=== PATIENT | female | born 1950 | race Caucasian/White ===

== ENCOUNTER 2017-06-04 17:43 | Observation (INO) | payer OTHER ==
[~2017-06-04] VITALS: Ht 154.9 cm; Wt 89.7 kg
[~2017-06-04 17:43] MED LIST: CLON1TAB3; ESOM20CA; ESTR1.252; FLUO20CA35; OXYC-57
[2017-06-04] MEDS ORDERED: ONDANSETRON INJ 2 MG/ML 2 ML VIAL IV STA (17:54)
[2017-06-04] MEDS ORDERED: MoRPHine SULFATE 4 MG/ML 1 ML CARP\\VIAL IV STA (17:55)
[2017-06-04] MEDS ORDERED: OPTIRAY 320 IV PRN (18:00)
--- NOTE | 2017-06-04 18:08 | EMERGENCY ROOM VISIT NOTE ---
History Report prepared by Andrew: Amparo farmer Under the Supervision of: Dr. Shola Jimenez M.D. First contact with patient: 17:44 Chief Complaint: ABDOMINAL PAIN Stated Complaint: ABD PAIN/NAUSEA, DIZZY History of Present Illness The patient is a 66 year old female with a past medical history of Fibromyalgia who presents to the ED with a cc of constant chest pain beginning prior to arrival. The patient describes the pain as a "crushing pain." She states that it radiates to her back. She reports it started while she was sitting and has never had this before. She states that when she took Aspirin it helped some. Positive intermittent nausea, dizziness, abdominal pain and diaphoresis. Negative shortness of breath, cough, fevers, chills, recent antibiotic use, recent travel, urinary symptoms, diarrhea, melena, hematochezia , alcohol use, tobacco use, and a history of a DVT or PE. The patient notes a family history of CAD. The patient notes slipping on ice yesterday and falling on her face. Source of History: patient Onset: prior to arrival Position: chest Quality: other (crushing) Timing: constant Modifying Factors (Relieving): other (Aspirin) Associated Symptoms: + diaphoresis, + nausea, + abdominal pain, No fevers, No chills, No cough, No SOB, No melena, No hematochezia, No diarrhea, No urinary symptoms Note: The patient complains of dizziness. The patient denies recent antibiotic use, recent travel, alcohol use, tobacco use, and a history of a DVT or PE. Review of Systems See HPI for pertinent positives and negatives. A total of ten systems were reviewed and were otherwise negative. Past Medical & Surgical Medical Problems: (1) Chest pain (2) Fibromyalgia Family History Heart disease Social History Smoking Status: Never Smoker Smokeless Tobacco Use: No Alcohol Use: none Marital Status: single Current/Historical Medications Scheduled Aspirin (Aspirin EC Low Dose), 81 MG PO DAILY Citalopram (Citalopram Hydrobromide), 40 MG PO DAILY Clonazepam (Klonopin), 1 MG PO HS Estrogens, Conjugated (Premarin), 0.5 GM PV 2XWK Fluticasone Propionate (Nasal) (Flonase Allergy Relief), 2 SPRAYS MAGALY DAILY Gabapentin (Neurontin), 100 MG PO HS Omeprazole (Prilosec), 20 MG PO BID Solifenacin (Vesicare), 5 MG PO DAILY Triamterene/Hctz (Dyazide 37.5MG/25MG), 1 TAB PO DAILY Scheduled PRN Oxycodone/Acetaminophen 5MG/325MG (Percocet 5MG/325MG), 1 TABLET PO Q8 PRN for Severe Pain Allergies Coded Allergies: Cortisone (Verified Allergy, Intermediate, Rash, 06/04/17) Sulfa Antibiotics (Verified Allergy, Intermediate, RASH, 06/04/17) Physical Exam Vital Signs Date Time Temp Pulse Resp B/P (MAP) Pulse Ox O2 Delivery O2 Flow Rate FiO2 06/04/17 19:30 66 18 132/59 97 Room Air 06/04/17 17:45 36.5 75 18 137/71 96 Room Air 06/04/17 17:45 96 Room Air 06/04/17 17:45 96 Room Air Physical Exam GENERAL: Awake, alert, well-appearing, NAD, patient is in mild discomfort HENT: Normocephalic, scant abrasions over the face. EYES: Normal conjunctiva. Sclera non-icteric. NECK: Supple. No nuchal rigidity. FROM. RESPIRATORY: CTAB, no rhonchi, wheezing, crackles CARDIAC: RRR, no MRG ABDOMEN: Soft, nondistended, BS+, mild epigastric discomfort, nonsurgical abdomen MSK: No chest wall TTP, no LE edema NEURO: GCS 15, CN 2-12 intact, moves all 4s on command SKIN: No rash or jaundice noted. Medical Decision & Procedures ER Provider Diagnostic Interpretation: Radiology results as stated below per my review and radiologist interpretation: CHEST ONE VIEW PORTABLE CLINICAL HISTORY: Abdominal pain. COMPARISON STUDY: No previous studies for comparison. FINDINGS: Lung volumes are normal. There is no pneumothorax or pleural effusion. There is no consolidation to suggest pneumonia. There is mild cardiomegaly without evidence of pulmonary edema. There is no lucency under the hemidiaphragms to suggest pneumoperitoneum. IMPRESSION: 1. No acute cardiopulmonary findings. 2. Mild cardiomegaly. Electronically signed by: Jaskaran Felipe M.D. 06/04/2017 6:36 PM Dictated Date/Time: 06/04/2017 6:33 PM CHEST COMBO ANGIO DISSECTION CLINICAL HISTORY: Severe lower chest and epigastric pain radiating to back. COMPARISON STUDY: Chest radiograph performed earlier today. TECHNIQUE: Unenhanced and arterial phase imaging of the chest was performed. Injection of 93 cc Optiray 320 IV was uneventful. Sagittal and coronal reconstructed reviewed as well as maximal intensity projections on an independent 3-D workstation. FINDINGS: The caliber of the thoracic aorta is normal. There is no intramural hematoma or thoracic aortic dissection. There is mild to moderate cardiomegaly. There is trace pericardial fluid. No pulmonary emboli are identified. No pneumothorax or pleural effusion is present. There is no consolidation to suggest pneumonia. Bibasilar opacities reflect atelectasis. The central airways are patent. Note is made of a 5 mm right upper lobe nodule shown on image 74 of 251. Bony thorax is unremarkable. There is fatty infiltration of the liver. IMPRESSION: 1. No thoracic aortic dissection. 2. No acute intrathoracic findings. 3. Mild to moderate cardiomegaly. 4. 5 mm right upper lobe nodule. This can be followed according to the attached recommendations. 5. Fatty liver. Please refer to below summary of Fleischner criteria recommendations for follow-up of incidental CT nodules (Raleigh Williamson, Guidelines for management of small pulmonary nodules detected on CT scans: A statement from the Fleischner Society, Radiology 237: [phone].) SOLID NODULES Solitary nodule size: <6 mm * low risk patients: no follow-up needed * high risk patients: optional CT at 12 months Solitary nodule size: 6-8 mm * low risk patients: follow-up at 6-12 months, then consider further follow-up at 18-24 months * high risk patients: initial follow-up CT at 6-12 months and then at 18-24 months if no change Solitary nodule size: >8 mm * either low or high risk patients - consider follow-up CT at 3 months, and/or CT-PET, and/or biopsy Multiple nodules size: <6 mm * low risk patients: no routine follow-up * high risk patients: optional CT at 12 months Multiple nodules size: 6-8 mm * low risk patients: follow-up at 3-6 months, then consider further follow-up at 18-24 months * high risk patients: follow-up at 3-6 months, then at 18-24 months if no change Multiple nodules size: >8 mm * low risk patients: follow-up at 3-6 months, then consider further follow-up at 18-24 months * high risk patients: follow-up at 3-6 months, then at 18-24 months if no change Note: newly detected indeterminate nodule in persons 35 years of age or older. * low risk patients: minimal or absent history of smoking and/or other known risk factors * high risk patients: history of smoking or of other known risk factors (e.g. first degree relative with lung cancer, or exposure to asbestos, radon, uranium) * if a nodule up to 8 mm is partly solid or is ground glass further follow-up is required after 24 months to exclude possible slow growing adenocarcinoma (KENNEY) SUBSOLID NODULES Solitary pure ground-glass nodule * nodule size <6 mm - no CT follow-up required * nodule size >=6 mm - follow-up CT at 6-12 months, then every 2 years until 5 years Solitary part-solid nodule * nodule size <6 mm - no CT follow-up required * nodule size >=6 mm - follow-up CT at 3-6 months. If unchanged, and solid component remains <6 mm, then annual follow-up for 5 years Multiple subsolid nodules * nodule size <6 mm - follow-up CT at 3-6 months, consider further follow-up at 2 and 4 years if stable * nodule size >=6 mm - follow-up CT at 3-6 months, subsequent management based on the most suspicious nodule(s) Electronically signed by: Jaskaran Felipe M.D. 06/04/2017 7:12 PM Dictated Date/Time: 06/04/2017 6:59 PM Laboratory Results 06/04/17 17:45 Test 06/04/17 17:45 06/04/17 18:07 06/04/17 18:34 Activated Partial Thromboplast Time 31.4 SECONDS (21.0-31.0) Partial Thromboplastin Ratio 1.2 Est Creatinine Clear Calc Drug Dose 60.0 ml/min Estimated GFR () 70.7 Estimated GFR (Non- 61.0 BUN/Creatinine Ratio 13.0 (10-20) Calcium Level 9.2 mg/dl (8.5-10.1) Magnesium Level 2.2 mg/dl (1.8-2.4) Total Bilirubin 0.5 mg/dl (0.2-1) Direct Bilirubin < 0.1 mg/dl (0-0.2) Aspartate Amino Transf (AST/SGOT) 19 U/L (15-37) Alanine Aminotransferase (ALT/SGPT) 30 U/L (12-78) Alkaline Phosphatase 83 U/L (45-117) Total Protein 8.1 gm/dl (6.4-8.2) Albumin 3.8 gm/dl (3.4-5.0) Lipase 234 U/L (73-393) Bedside Troponin I < 0.030 ng/ml (0-0.045) Bedside Hemoglobin 11.9 g/dl (12.0-16.0) Bedside Hematocrit 35 % (37-47) Bedside Sodium 141 mEq/L (135-144) Bedside Potassium 3.6 mEq/L (3.3-5.0) Bedside Chloride 102 mEq/L (101-112) Bedside Total CO2 26 mEq/l (24-31) Anion Gap 17.0 mmol/L (16-25) Bedside Blood Urea Nitrogen 13 mg/dl (7-18) Bedside Creatinine 0.8 mg/dl (0.6-1.3) Bedside Glucose (other) 113 mg/dl (70-99) Bedside Lactic Acid Venous 1.64 mmol/L (0.90-1.70) Bedside Ionized Calcium (Jones) 1.11 mmol/l (1.12-1.32) Laboratory results reviewed by me Medications Administered Medications (Trade) Dose Ordered Sig/Rani Route Start Time Stop Time Status Last Admin Dose Admin Ondansetron HCl (Zofran Inj) 4 mg NOW STAT IV 06/04/17 17:54 06/04/17 17:56 DC 06/04/17 18:23 4 MG Morphine Sulfate (MoRPHine SULFATE INJ) 4 mg NOW STAT IV 06/04/17 17:55 06/04/17 17:56 DC 06/04/17 18:24 4 MG ECG Indication: chest pain Rate (beats per minute): 63 Rhythm: normal sinus Findings: 1st degree AV block, LBBB, T-wave inversion (Lateral, hilateral, and lead 2), other (wide QRS) Comparison ECG Date: Posterior Change: Patient's electrocardiogram interpreted by me. Posterior: Diffuse TWI in the posterior leads, rate of 66. ED Course 1747: The patient was evaluated in room B11B. A complete history and physical exam was performed. 1930: I reevaluated the patient and she is feeling better. 1952: Discussed the patient's case with Dr. Gigi Gibson. The patient will be evaluated for further treatment and disposition. Medical Decision The patient is a 66 year old female with a past medical history of Fibromyalgia who presents to the ED with a cc of constant chest pain beginning prior to arrival. Differential diagnosis: Etiologies such as cardiac ischemia, aortic dissection, pulmonary embolism, pneumonia, pneumothorax, musculoskeletal, infections, pericarditis, myocarditis , esophageal rupture, gastrointestinal, as well as others were entertained. Patient was seen and evaluated the bedside. Patient had complained of crushing substernal chest pain beginning around 4 PM. This was not exertional. Patient described it as radiating to her back. Patient did complains mild nausea. Patient does have a family history of MIs one in her 1 parent one one of her siblings before the age 65. Patient is obese. Patient was given full dose aspirin as well as nitroglycerin she states mildly improved her pain. Patient' s EKG did show a left bundle branch block with T-wave inversions in the lateral leads. She did show me one from 2001 and are changes from 2001. Posterior EKG was also obtained which did not show any elevations. Only T-wave inversions. Patient's blood work was fairly unremarkable with a negative troponin. Upon reassessment the patient's chest pain resolved. The patient's CTA dissection was negative acute. Chest x-ray clear. Given the patient's concerning story as well as resolution with aspirin and nitroglycerin and family history I did discuss the patient's case with the hospitalists for further evaluation for a chest pain rule out and observation. Patient was to be seen and evaluated by the medicine service. Medication Reconcilliation Current Medication List: was personally reviewed by me Blood Pressure Screening Patient's blood pressure: Normal blood pressure Will be further monitored by the hospitalist. Consults Time Called: 1946 Consulting Physician: Dr. Gigi Gibson Returned Call: 1952 Discussed the patient's case with Dr. Gigi Gibson. The patient will be evaluated for further treatment and disposition. Impression Primary Impression: Atypical chest pain Scribe Attestation The scribe's documentation has been prepared under my direction and personally reviewed by me in its entirety. I confirm that the note above accurately reflects all work, treatment, procedures, and medical decision making performed by me. Departure Information Dispostion Being Evaluated By Hospitalist Prescriptions Aspirin (Aspirin EC Low Dose) 81 Mg Ectab 81 MG PO DAILY for 30 Days, #30 EA 2 Refills Prov: Bertrand Goodwin MD 06/05/17 Referrals No Doctor, Assigned (PCP) Patient Instructions My [facility]
[2017-06-04 18:28] LABS: BASO % 0.6 %; BASO ABS # 0.05 K/uL (0-0.2); EOS % 2.4 %; EOS ABS # 0.19 K/uL (0-0.5); HEMATOCRIT 36.8 % (37-47); HEMOGLOBIN 12.5 g/dL (12.0-16.0); IG# 0.02 K/uL (0.00-0.02); LYMPH % 29.8 %; LYMPH ABS # 2.38 K/uL (1.2-3.4); MEAN CELL VOLUME 96.6 fL (80-100); MEAN CORPUSCULAR HEMOGLOBIN 32.8 pg (25-34); MEAN PLATELET VOLUME 8.8 fL (7.4-10.4); MONO % 7.8 %; MONO ABS # 0.62 K/uL (0.11-0.59); NEUT % 59.1 %; NEUT ABS # 4.74 K/uL (1.4-6.5); PLATELET COUNT 365 K/uL (130-400); RED CELL DISTRIBUTION WIDTH CV 13.4 % (11.5-14.5); RED CELL DISTRIBUTION WIDTH SD 46.7 fL (36.4-46.3)
[2017-06-04] MEDS ORDERED: PRLSR20 PO (18:29)
[2017-06-04] MEDS ORDERED: PRMVC PV (18:29)
[2017-06-04] MEDS ORDERED: GABA-112 PO (18:29)
[2017-06-04] MEDS ORDERED: OXYC-57 PO (18:29)
[2017-06-04] MEDS ORDERED: CITA40TA4 PO (18:29)
[2017-06-04] MEDS ORDERED: FLUT0.15 NAE (18:29)
[2017-06-04] MEDS ORDERED: VSC/5 PO (18:29)
[2017-06-04] MEDS ORDERED: CLON1TAB3 PO (18:29)
[2017-06-04] MEDS ORDERED: TRIA37.5 PO (18:29)
--- NOTE | 2017-06-04 18:37 | DIAGNOSTIC IMAGING REPORT ---
CHEST ONE VIEW PORTABLE CLINICAL HISTORY: Abdominal pain. COMPARISON STUDY: No previous studies for comparison. FINDINGS: Lung volumes are normal. There is no pneumothorax or pleural effusion. There is no consolidation to suggest pneumonia. There is mild cardiomegaly without evidence of pulmonary edema. There is no lucency under the hemidiaphragms to suggest pneumoperitoneum. IMPRESSION: 1. No acute cardiopulmonary findings. 2. Mild cardiomegaly. Electronically signed by: Jaskaran Felipe M.D. 06/04/2017 6:36 PM Dictated Date/Time: 06/04/2017 6:33 PM
[2017-06-04 18:48] LABS: ISTAT CREATININE 0.8 mg/dl (0.6-1.3); ISTAT IONIZED CALCIUM 1.11 mmol/l (1.12-1.32); ISTAT POTASSIUM 3.6 mEq/L (3.3-5.0)
[2017-06-04 18:49] LABS: ALBUMIN 3.8 gm/dl (3.4-5.0); ALT/SGPT 30 U/L (12-78); BLOOD UREA NITROGEN 13 mg/dl (7-18); CALCIUM 9.2 mg/dl (8.5-10.1); CARBON DIOXIDE 26 mmol/L (21-32); CREATININE 0.98 mg/dl (0.60-1.20); GLUCOSE 113 mg/dl (70-99); LIPASE 234 U/L (73-393); POTASSIUM 3.5 mmol/L (3.5-5.1); SODIUM 138 mmol/L (136-145)
[2017-06-04 18:52] LABS: ALKALINE PHOSPHATASE 83 U/L (45-117); AST/SGOT 19 U/L (15-37); TOTAL PROTEIN 8.1 gm/dl (6.4-8.2)
--- NOTE | 2017-06-04 19:13 | DIAGNOSTIC IMAGING REPORT ---
CHEST COMBO ANGIO DISSECTION CLINICAL HISTORY: Severe lower chest and epigastric pain radiating to back. COMPARISON STUDY: Chest radiograph performed earlier today. TECHNIQUE: Unenhanced and arterial phase imaging of the chest was performed. Injection of 93 cc Optiray 320 IV was uneventful. Sagittal and coronal reconstructed reviewed as well as maximal intensity projections on an independent 3-D workstation. FINDINGS: The caliber of the thoracic aorta is normal. There is no intramural hematoma or thoracic aortic dissection. There is mild to moderate cardiomegaly. There is trace pericardial fluid. No pulmonary emboli are identified. No pneumothorax or pleural effusion is present. There is no consolidation to suggest pneumonia. Bibasilar opacities reflect atelectasis. The central airways are patent. Note is made of a 5 mm right upper lobe nodule shown on image 74 of 251. Bony thorax is unremarkable. There is fatty infiltration of the liver. IMPRESSION: 1. No thoracic aortic dissection. 2. No acute intrathoracic findings. 3. Mild to moderate cardiomegaly. 4. 5 mm right upper lobe nodule. This can be followed according to the attached recommendations. 5. Fatty liver. Please refer to below summary of Fleischner criteria recommendations for follow-up of incidental CT nodules ([place] Williamson, Guidelines for management of small pulmonary nodules detected on CT scans: A statement from the Fleischner Society, Radiology 237: [phone].) SOLID NODULES Solitary nodule size: <6 mm * low risk patients: no follow-up needed * high risk patients: optional CT at 12 months Solitary nodule size: 6-8 mm * low risk patients: follow-up at 6-12 months, then consider further follow-up at 18-24 months * high risk patients: initial follow-up CT at 6-12 months and then at 18-24 months if no change Solitary nodule size: >8 mm * either low or high risk patients - consider follow-up CT at 3 months, and/or CT-PET, and/or biopsy Multiple nodules size: <6 mm * low risk patients: no routine follow-up * high risk patients: optional CT at 12 months Multiple nodules size: 6-8 mm * low risk patients: follow-up at 3-6 months, then consider further follow-up at 18-24 months * high risk patients: follow-up at 3-6 months, then at 18-24 months if no change Multiple nodules size: >8 mm * low risk patients: follow-up at 3-6 months, then consider further follow-up at 18-24 months * high risk patients: follow-up at 3-6 months, then at 18-24 months if no change Note: newly detected indeterminate nodule in persons 35 years of age or older. * low risk patients: minimal or absent history of smoking and/or other known risk factors * high risk patients: history of smoking or of other known risk factors (e.g. first degree relative with lung cancer, or exposure to asbestos, radon, uranium) * if a nodule up to 8 mm is partly solid or is ground glass further follow-up is required after 24 months to exclude possible slow growing adenocarcinoma (KENNEY) SUBSOLID NODULES Solitary pure ground-glass nodule * nodule size <6 mm - no CT follow-up required * nodule size >=6 mm - follow-up CT at 6-12 months, then every 2 years until 5 years Solitary part-solid nodule * nodule size <6 mm - no CT follow-up required * nodule size >=6 mm - follow-up CT at 3-6 months. If unchanged, and solid component remains <6 mm, then annual follow-up for 5 years Multiple subsolid nodules * nodule size <6 mm - follow-up CT at 3-6 months, consider further follow-up at 2 and 4 years if stable * nodule size >=6 mm - follow-up CT at 3-6 months, subsequent management based on the most suspicious nodule(s) Electronically signed by: Jaskaran Felipe M.D. 06/04/2017 7:12 PM Dictated Date/Time: 06/04/2017 6:59 PM
[2017-06-04 20:39] LABS: PTT PATIENT 31.4 SECONDS (21.0-31.0)
[2017-06-04] MEDS ORDERED: IV FLUIDS COMPLETED PRN (21:00)
[2017-06-04] MEDS ORDERED: NITROGLYCERIN 0.4 MG SL PER TAB CHARGE SL PRN (21:15)
[2017-06-04] MEDS ORDERED: ACETAMINOPHEN 325 MG TAB PO PRN (21:15)
[2017-06-04] MEDS ORDERED: MoRPHine SULFATE 4 MG/ML 1 ML CARP\\VIAL IV PRN (21:15)
[2017-06-04] MEDS ORDERED: OXYCODONE/ACETAMINOPHEN 5-325 TAB PO PRN (21:15)
[2017-06-04] MEDS ORDERED: PROCHLORPERAZINE INJ 5 MG in SYRINGE 4 ML IV PRN (21:15)
[2017-06-04] MEDS ORDERED: LORAZEPAM 2 MG/ML 1 ML VIAL IV PRN (21:15)
--- NOTE | 2017-06-04 21:42 | DIAGNOSTIC IMAGING REPORT ---
ABDOMINAL ULTRASOUND, RIGHT UPPER QUADRANT HISTORY: Abdominal pain. COMPARISON: None. FINDINGS: The liver is echogenic consistent with fatty infiltration. A hypoechoic focus within the gallbladder fossa suggests fatty sparing. There is no biliary ductal dilatation. Common bile duct measures 4 mm in caliber. The gallbladder is normal. No gallstones are identified. The pancreatic body is normal. The pancreatic head and tail are obscured by overlying bowel gas. There is no right hydronephrosis. IMPRESSION: 1. No gallstones or biliary ductal dilatation. 2. Fatty infiltration of the liver. Electronically signed by: Jaskaran Felipe M.D. 06/04/2017 9:41 PM Dictated Date/Time: 06/04/2017 9:38 PM
[2017-06-04 21:59] VITALS: BP 152/75; PULSE 63; TEMP 36.4; O2SAT 95; Ht 154.9 cm; Wt 89.7 kg
[2017-06-04] MEDS ORDERED: LORAZEPAM INJ 0.5 MG in SYRINGE 0.75 ML IV PRN (22:15)
[2017-06-04] MEDS ORDERED: NSS + 20MEQ KCL 1000ML 1,000 ML IV SCH (22:30)
[2017-06-04] MEDS ORDERED: CLONAZEPAM 1 MG TAB PO ONE (22:30)
[2017-06-04 23:08] VITALS: BP 123/71; PULSE 66; TEMP 37.1; O2SAT 91
--- NOTE | 2017-06-05 04:15 | HISTORY & PHYSICAL EXAMINATION ---
DATE OF ADMISSION: 06/04/2017 PRIMARY CARE DOCTOR: Dr. Lino. CHIEF COMPLAINT: Chest pain. HISTORY OF PRESENT ILLNESS: History obtained from the patient and records. Medical history is significant for hypertension, fibromyalgia, GERD, chronic left bundle-branch block, chronic fatigue syndrome as per records, anxiety, mood disorder. Yesterday, the patient noted lower chest pain described as crushing, going to her back, different from reflux, some shortness of breath, pleuritic. Some relief with aspirin. Some nausea, dizziness and diaphoresis. No shortness of breath. No bladder symptoms. Patient thinks she may have had similar chest discomfort more than 20 years ago which prompted a stress test at [facility] which turned out to be normal. The day before, she had a fall after slipping on the ice, falling on her face, no loss of consciousness. She sustained some facial bruises. MEDICAL HISTORY: As above. 2D echo from May 2012 showed EF 55%, LVH, no pulmonary hypertension, no significant valvular heart disease. SURGERIES: She has had carpal tunnel, VEENA BSO. HOME MEDICATIONS: Include citalopram, Klonopin, Premarin, Flonase, Neurontin, Prilosec, Percocet, VESIcare, Dyazide. ALLERGIES: ALLERGIC TO CORTISONE AND SULFA. FAMILY HISTORY: Heart disease, skin cancer. PERSONAL AND SOCIAL HISTORY: Nonsmoker, no chronic intake of alcohol beverages. 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 REVIEW OF SYSTEMS: As per HPI, all 10 systems reviewed. All other ROS negative. PHYSICAL EXAMINATION: VITAL SIGNS: Blood pressure was noted to be 130/80, pulse rate 80, RR 18, temperature 36.5, sats 98 on room air. GENERAL: Noted to be obese, comfortable, no respiratory distress. Pleasant SKIN: Normal color. Warm. HEENT: [place] palpebral conjunctivae. No ptosis. Dry mucosa. Abrasions on the forehead, nasal dorsum NECK: Short neck, nontender, supple. CHEST: Clear to auscultation. No anterior chest wall tenderness. HEART: Regular rate and rhythm, no murmur. ABDOMEN: Some distension, nontender. EXTREMITIES: No edema, no tenderness. No gross deformity. NEUROLOGIC: Coherent. No gross focality. LABORATORIES: Hemoglobin 12.5, white cell count 8, platelets noted to be 365. Sodium noted to be 138, potassium 3.5, chloride 104, CO2 26, BUN 30, creatinine 0.9, glucose 113. LFTs, lipase normal. ESR was noted to be 55. CTdissection study, no thoracic aortic dissection, cardiomegaly, trace pericardial fluid Gallbladder ultrasound negative for gallstones ; fatty infiltration of the liver. EKG as per my interpretation, rate 65, normal sinus rhythm, chronic left bundle-branch block. ASSESSMENT: 1. Atypical chest pain Differentials include pericarditis and acute coronary syndrome. 2. Hypertension, stable. 3. Fibromyalgia, stable. 4. Mood disorder, stable. 5. Chronic left bundle-branch block. PLAN: Observation PCU Follow cardiac markers. 2D echo, Cardio consult RE chest pain. Further evaluation and management of chest pain as per Cardiology. DVT prophylaxis, Lovenox subQ. Full code. MTDD
[2017-06-05 04:26] LABS: BASO % 0.5 %; BASO ABS # 0.04 K/uL (0-0.2); EOS % 2.3 %; EOS ABS # 0.18 K/uL (0-0.5); HEMATOCRIT 32.8 % (37-47); HEMOGLOBIN 11.1 g/dL (12.0-16.0); IG# 0.01 K/uL (0.00-0.02); LYMPH % 35.1 %; LYMPH ABS # 2.69 K/uL (1.2-3.4); MEAN CELL VOLUME 97.9 fL (80-100); MEAN CORPUSCULAR HEMOGLOBIN 33.1 pg (25-34); MEAN CORPUSCULAR HGB CONC 33.8 g/dl (32-36); MEAN PLATELET VOLUME 8.5 fL (7.4-10.4); MONO ABS # 0.61 K/uL (0.11-0.59); NEUT ABS # 4.13 K/uL (1.4-6.5); PLATELET COUNT 298 K/uL (130-400); RED CELL DISTRIBUTION WIDTH CV 13.7 % (11.5-14.5); RED CELL DISTRIBUTION WIDTH SD 48.7 fL (36.4-46.3); WHITE BLOOD COUNT 7.66 K/uL (4.8-10.8)
[2017-06-05 04:41] VITALS: BP 120/74; PULSE 68; TEMP 36.8; O2SAT 93
[2017-06-05 04:58] LABS: CHOLESTEROL 158 mg/dl (0-200); LDL CHOLESTEROL CALCULATED 76 mg/dl
[2017-06-05 07:47] VITALS: BP 144/72; PULSE 67; TEMP 36.7; O2SAT 96
[2017-06-05] MEDS ORDERED: PANTOprazole SOD 40 MG TAB PO SCH (09:00)
[2017-06-05] MEDS ORDERED: FLUTICASONE PROPIONATE NA SPR 16 GM BTL NAE SCH (09:00)
[2017-06-05] MEDS ORDERED: ENOXAPARIN 40 MG/0.4 ML SYR SC SCH (09:00)
[2017-06-05] MEDS ORDERED: CITALOPRAM 40 MG TAB PO SCH (09:00)
[2017-06-05 11:18] VITALS: BP 130/70; PULSE 81; TEMP 36.5; O2SAT 93
--- NOTE | 2017-06-05 12:23 | Progress Note ---
Internal Med Progress Note Date of Service: Jun 05, 2017. Provider Documentation: SUBJECTIVE: Seen and examined at bedside States chest pain resolved Denies any SOB, dizziness, nausea No other complaints Family at bedside OBJECTIVE: Vital Signs-as noted below Physical Exam: General Appearance:Moderately built and nourished, no apparent distress Head: normocephalic, Atraumatic Eyes: normal inspection, EOMI, PERRL Neck: supple, Trachea midline Respiratory/Chest: Normal breath sounds, CTA Cardiovascular: S1, S2, No murmur Abdomen/GI:Soft, Non tender, Bowel sounds present Extremities/Musculoskelatal:normal inspection, no edema Neurologic/Psych:AAOX3, grossly no focal neurological deficits Skin: normal color, warm Lab data as noted below. ASSESSMENT & PLAN: Chest Pain: R/O ACS: Unlikely Cardiac Origin Last Stress ECHO was in 2001 Troponin:Negative EKG:LBBB CXR: Unremarkable CT dissection:No thoracic aortic dissection, Mild to moderate cardiomegaly. ECHO:pending fasting lipid panel:normal Appreciate Cardiology Input Planned for outpatient Lexiscan Cardiolite study as outpatient Hypertension: stable H/O Fibromyalgia H/O Mood disorder stable Continue home medications GERD: Continue PPI DVT Px; Lovenox SQ Code Status: Full code Disposition: Plan to discharge home today Follow up with your Primary Care Physician on 06/12/17 at 11:04AM Follow up with your [employer] Professor and get outpatient Lexiscan Cardiolite study as advised Seek immediate medical attention if your symptoms reoccur or worsen Vital Signs: Date Time Temp Pulse Resp B/P (MAP) Pulse Ox O2 Delivery O2 Flow Rate FiO2 06/05/17 12:51 93 Room Air 06/05/17 11:18 36.5 81 20 130/70 (90) 93 06/05/17 07:47 36.7 67 20 144/72 (96) 96 06/05/17 07:45 Room Air 06/05/17 04:41 36.8 68 18 120/74 (89) 93 Room Air 06/05/17 04:00 Room Air 06/05/17 00:00 Room Air 06/04/17 23:08 37.1 66 20 123/71 (88) 91 Room Air 06/04/17 21:59 36.4 63 16 152/75 95 Room Air 06/04/17 21:05 61 18 120/54 95 06/04/17 19:30 66 18 132/59 97 Room Air 06/04/17 17:45 36.5 75 18 137/71 96 Room Air 06/04/17 17:45 96 Room Air 06/04/17 17:45 96 Room Air Lab Results: Results Past 24 Hours Test 06/04/17 17:45 06/04/17 18:07 06/04/17 18:34 06/04/17 22:25 Range/Units White Blood Count 8.00 4.8-10.8 K/uL Red Blood Count 3.81 4.2-5.4 M/uL Hemoglobin 12.5 12.0-16.0 g/dL Hematocrit 36.8 37-47 % Mean Corpuscular Volume 96.6 80-100 fL Mean Corpuscular Hemoglobin 32.8 25-34 pg Mean Corpuscular Hemoglobin Concent 34.0 32-36 g/dl Platelet Count 365 130-400 K/uL Mean Platelet Volume 8.8 7.4-10.4 fL Neutrophils (%) (Auto) 59.1 % Lymphocytes (%) (Auto) 29.8 % Monocytes (%) (Auto) 7.8 % Eosinophils (%) (Auto) 2.4 % Basophils (%) (Auto) 0.6 % Neutrophils # (Auto) 4.74 1.4-6.5 K/uL Lymphocytes # (Auto) 2.38 1.2-3.4 K/uL Monocytes # (Auto) 0.62 0.11-0.59 K/uL Eosinophils # (Auto) 0.19 0-0.5 K/uL Basophils # (Auto) 0.05 0-0.2 K/uL RDW Standard Deviation 46.7 36.4-46.3 fL RDW Coefficient of Variation 13.4 11.5-14.5 % Immature Granulocyte % (Auto) 0.3 % Immature Granulocyte # (Auto) 0.02 0.00-0.02 K/uL Activated Partial Thromboplast Time 31.4 21.0-31.0 SECONDS Partial Thromboplastin Ratio 1.2 Sodium Level 138 136-145 mmol/L Potassium Level 3.5 3.5-5.1 mmol/L Chloride Level 104 98-107 mmol/L Carbon Dioxide Level 26 21-32 mmol/L Anion Gap 9.0 17.0 16-25 mmol/L Blood Urea Nitrogen 13 7-18 mg/dl Creatinine 0.98 0.60-1.20 mg/dl Est Creatinine Clear Calc Drug Dose 60.0 ml/min Estimated GFR () 70.7 Estimated GFR (Non- 61.0 BUN/Creatinine Ratio 13.0 10-20 Random Glucose 113 70-99 mg/dl Calcium Level 9.2 8.5-10.1 mg/dl Magnesium Level 2.2 1.8-2.4 mg/dl Total Bilirubin 0.5 0.2-1 mg/dl Direct Bilirubin < 0.1 0-0.2 mg/dl Aspartate Amino Transf (AST/SGOT) 19 15-37 U/L Alanine Aminotransferase (ALT/SGPT) 30 12-78 U/L Alkaline Phosphatase 83 45-117 U/L Total Protein 8.1 6.4-8.2 gm/dl Albumin 3.8 3.4-5.0 gm/dl Lipase 234 73-393 U/L Bedside Troponin I < 0.030 0-0.045 ng/ml Bedside Hemoglobin 11.9 12.0-16.0 g/dl Bedside Hematocrit 35 37-47 % Bedside Sodium 141 135-144 mEq/L Bedside Potassium 3.6 3.3-5.0 mEq/L Bedside Chloride 102 101-112 mEq/L Bedside Total CO2 26 24-31 mEq/l Bedside Blood Urea Nitrogen 13 7-18 mg/dl Bedside Creatinine 0.8 0.6-1.3 mg/dl Bedside Glucose (other) 113 70-99 mg/dl Bedside Lactic Acid Venous 1.64 0.90-1.70 mmol/L Bedside Ionized Calcium (Jones) 1.11 1.12-1.32 mmol/l Erythrocyte Sedimentation Rate 55 0-21 mm/hr Troponin I < 0.015 0-0.045 ng/ml Test 06/04/17 23:00 06/05/17 03:51 Range/Units Urine Color YELLOW Urine Appearance CLEAR CLEAR Urine pH 6.5 4.5-7.5 Urine Specific [place] <= 1.005 1.000-1.030 Urine Protein NEG NEG Urine Glucose (UA) NEG NEG Urine Ketones NEG NEG Urine Occult Blood TRACE NEG Urine Nitrite NEG NEG Urine Bilirubin NEG NEG Urine Urobilinogen NEG NEG Urine Leukocyte Esterase NEG NEG Urine RBC 0-4 0-4 /hpf Urine WBC 0 0-5 /hpf Urine Epithelial Cells 20-30 0-5 /lpf Urine Bacteria NEG NEG White Blood Count 7.66 4.8-10.8 K/uL Red Blood Count 3.35 4.2-5.4 M/uL Hemoglobin 11.1 12.0-16.0 g/dL Hematocrit 32.8 37-47 % Mean Corpuscular Volume 97.9 80-100 fL Mean Corpuscular Hemoglobin 33.1 25-34 pg Mean Corpuscular Hemoglobin Concent 33.8 32-36 g/dl Platelet Count 298 130-400 K/uL Mean Platelet Volume 8.5 7.4-10.4 fL Neutrophils (%) (Auto) 54.0 % Lymphocytes (%) (Auto) 35.1 % Monocytes (%) (Auto) 8.0 % Eosinophils (%) (Auto) 2.3 % Basophils (%) (Auto) 0.5 % Neutrophils # (Auto) 4.13 1.4-6.5 K/uL Lymphocytes # (Auto) 2.69 1.2-3.4 K/uL Monocytes # (Auto) 0.61 0.11-0.59 K/uL Eosinophils # (Auto) 0.18 0-0.5 K/uL Basophils # (Auto) 0.04 0-0.2 K/uL RDW Standard Deviation 48.7 36.4-46.3 fL RDW Coefficient of Variation 13.7 11.5-14.5 % Immature Granulocyte % (Auto) 0.1 % Immature Granulocyte # (Auto) 0.01 0.00-0.02 K/uL Prothrombin Time 10.3 9.0-12.0 SECONDS Prothromb Time International Ratio 1.0 0.9-1.1 Troponin I < 0.015 0-0.045 ng/ml Triglycerides Level 149 0-150 mg/dl Cholesterol Level 158 0-200 mg/dl HDL Cholesterol 52 mg/dl LDL Cholesterol, Calculated 76 mg/dl VLDL Cholesterol, Calculated 30 mg/dl Cholesterol/HDL Ratio 3.0
[2017-06-05 12:51] VITALS: O2SAT 93
--- NOTE | 2017-06-05 13:18 | Cardiology Consultation ---
Cardiology Consultation Date of Service Jun 05, 2017. Cardiology Consultation History: 66-year-old female with a history of chronic fatigue syndrome , fibromyalgia, mood disorder, chronic left bundle branch block and hypertension. She last evening developed what she describes as severe epigastric discomfort radiating to her back. She states that it lasted for approximately an hour and then she called paramedics. She was given one sublingual nitroglycerin that did not help her discomfort. She was then given morphine which completely relieved her pain. She denies shortness of breath or dyspnea. She's had no heart palpitations or tachycardia. Recently she's had no activity related chest pain or progressive shortness of breath. She has no prior history of heart disease except that she's had a chronic left bundle branch block. She is treated for mild essential hypertension. She has no history of diabetes. She is a nonsmoker. Allergies: Cortisone and sulfa antibiotics Current Inpatient Medications Medications (Trade) Dose Ordered Sig/Rani Route Start Time Stop Time Status Last Admin Dose Admin Ioversol (Optiray 320) 100 ml UD PRN IV 06/04/17 18:00 06/08/17 17:59 Miscellaneous (Iv Fluids Completed) 1 ea PRN PRN N/A 06/04/17 21:00 06/04/18 20:59 Enoxaparin Sodium (Lovenox Inj) 40 mg Q24H SC 06/05/17 09:00 07/05/17 08:59 Potassium Chloride/Sodium Chloride 1,000 ml @ 60 mls/hr [id number] IV 06/04/17 22:30 07/04/17 22:29 06/04/17 22:25 60 MLS/HR Acetaminophen (Tylenol Tab) 650 mg Q4H PRN PO 06/04/17 21:15 07/04/17 21:14 Nitroglycerin (Nitrostat Tab) 0.4 mg UD PRN SL 06/04/17 21:15 07/04/17 21:14 Lorazepam (Ativan Inj) 0.5 mg Q4H PRN IV 06/04/17 21:15 07/04/17 21:14 Morphine Sulfate (MoRPHine SULFATE INJ) 4 mg Q3H PRN IV 06/04/17 21:15 06/18/17 21:14 Prochlorperazine Edisylate 5 mg/ Syringe 5 ml @ 5 mls/min Q6H PRN IV 06/04/17 21:15 07/04/17 21:14 Citalopram Hydrobromide (celeXA TAB) 40 mg DAILY PO 06/05/17 09:00 07/05/17 08:59 06/05/17 07:36 40 MG Clonazepam (Klonopin Tab) 1 mg HS PO 06/05/17 21:00 07/05/17 20:59 Fluticasone Propionate (Flonase Nasal [place]) 2 sprays DAILY MAGALY 06/05/17 09:00 07/05/17 08:59 06/05/17 07:36 2 SPRAYS Gabapentin (Neurontin Cap) 100 mg HS PO 06/05/17 21:00 07/05/17 20:59 Oxycodone/ Acetaminophen (Percocet 5-325mg Tab) 1 tab Q6 PRN PO 06/04/17 21:15 06/18/17 21:14 Pantoprazole Sodium (Protonix Tab) 40 mg BID PO 06/05/17 09:00 07/05/17 08:59 06/05/17 07:36 40 MG Miscellaneous Information (Order Awaiting Action) 1 ea QS N/A 06/05/17 08:00 07/05/17 07:59 Lorazepam 0.5 mg/ Syringe 1 ml @ 1 mls/min Q4H PRN IV 06/04/17 22:15 07/04/17 22:14 Past medical history: As described in history of chief complaint the patient has a history of mild essential hypertension. No prior history of diabetes, strokes or kidney disease. No prior history of heart disease. She does have a history of chronic fatigue syndrome and fibromyalgia. Social history: Patient is a nonsmoker. She is and lives with her . Family medical history: Significant for sister that has a defibrillator and a history of heart disease Head: The patient denies headache and prior head trauma. Cardiovascular: The patient denies chest pain or chest discomfort, dyspnea on exertion, palpitations, PND, orthopnea, edema, spontaneous shortness of breath, syncope and near syncope. Pulmonary: The patient denies cough, wheeze, pleurisy, hemoptysis, sputum, and excessive snoring. Gastrointestinal: The patient denies nausea, vomiting, diarrhea, constipation, bloating, hematemesis, hematochezia, and abdominal pain. Skin: The patient denies diaphoresis and rash. Musculoskeletal: The patient denies joint pain, joint swelling, myalgia, back pain, neck pain and prior injuries. Neurological: The patient denies prior stroke and seizures Vital Signs Past 12 Hours Date Time Temp Pulse Resp B/P (MAP) Pulse Ox O2 Delivery O2 Flow Rate FiO2 06/05/17 12:51 93 Room Air 06/05/17 11:18 36.5 81 20 130/70 (90) 93 06/05/17 07:47 36.7 67 20 144/72 (96) 96 06/05/17 07:45 Room Air 06/05/17 04:41 36.8 68 18 120/74 (89) 93 Room Air 06/05/17 04:00 Room Air Last 24 Hours Test 06/04/17 17:45 06/04/17 18:07 06/04/17 18:34 06/04/17 22:25 White Blood Count 8.00 K/uL Red Blood Count 3.81 M/uL Hemoglobin 12.5 g/dL Hematocrit 36.8 % Mean Corpuscular Volume 96.6 fL Mean Corpuscular Hemoglobin 32.8 pg Mean Corpuscular Hemoglobin Concent 34.0 g/dl Platelet Count 365 K/uL Mean Platelet Volume 8.8 fL Neutrophils (%) (Auto) 59.1 % Lymphocytes (%) (Auto) 29.8 % Monocytes (%) (Auto) 7.8 % Eosinophils (%) (Auto) 2.4 % Basophils (%) (Auto) 0.6 % Neutrophils # (Auto) 4.74 K/uL Lymphocytes # (Auto) 2.38 K/uL Monocytes # (Auto) 0.62 K/uL Eosinophils # (Auto) 0.19 K/uL Basophils # (Auto) 0.05 K/uL RDW Standard Deviation 46.7 fL RDW Coefficient of Variation 13.4 % Immature Granulocyte % (Auto) 0.3 % Immature Granulocyte # (Auto) 0.02 K/uL Activated Partial Thromboplast Time 31.4 SECONDS Partial Thromboplastin Ratio 1.2 Sodium Level 138 mmol/L Potassium Level 3.5 mmol/L Chloride Level 104 mmol/L Carbon Dioxide Level 26 mmol/L Anion Gap 9.0 mmol/L 17.0 mmol/L Blood Urea Nitrogen 13 mg/dl Creatinine 0.98 mg/dl Est Creatinine Clear Calc Drug Dose 60.0 ml/min Estimated GFR () 70.7 Estimated GFR (Non- 61.0 BUN/Creatinine Ratio 13.0 Random Glucose 113 mg/dl Calcium Level 9.2 mg/dl Magnesium Level 2.2 mg/dl Total Bilirubin 0.5 mg/dl Direct Bilirubin < 0.1 mg/dl Aspartate Amino Transf (AST/SGOT) 19 U/L Alanine Aminotransferase (ALT/SGPT) 30 U/L Alkaline Phosphatase 83 U/L Total Protein 8.1 gm/dl Albumin 3.8 gm/dl Lipase 234 U/L Bedside Troponin I < 0.030 ng/ml Bedside Hemoglobin 11.9 g/dl Bedside Hematocrit 35 % Bedside Sodium 141 mEq/L Bedside Potassium 3.6 mEq/L Bedside Chloride 102 mEq/L Bedside Total CO2 26 mEq/l Bedside Blood Urea Nitrogen 13 mg/dl Bedside Creatinine 0.8 mg/dl Bedside Glucose (other) 113 mg/dl Bedside Lactic Acid Venous 1.64 mmol/L Bedside Ionized Calcium (Jones) 1.11 mmol/l Erythrocyte Sedimentation Rate 55 mm/hr Troponin I < 0.015 ng/ml Test 06/04/17 23:00 06/05/17 03:51 Urine Color YELLOW Urine Appearance CLEAR Urine pH 6.5 Urine Specific [place] <= 1.005 Urine Protein NEG Urine Glucose (UA) NEG Urine Ketones NEG Urine Occult Blood TRACE Urine Nitrite NEG Urine Bilirubin NEG Urine Urobilinogen NEG Urine Leukocyte Esterase NEG Urine RBC 0-4 /hpf Urine WBC 0 /hpf Urine Epithelial Cells 20-30 /lpf Urine Bacteria NEG White Blood Count 7.66 K/uL Red Blood Count 3.35 M/uL Hemoglobin 11.1 g/dL Hematocrit 32.8 % Mean Corpuscular Volume 97.9 fL Mean Corpuscular Hemoglobin 33.1 pg Mean Corpuscular Hemoglobin Concent 33.8 g/dl Platelet Count 298 K/uL Mean Platelet Volume 8.5 fL Neutrophils (%) (Auto) 54.0 % Lymphocytes (%) (Auto) 35.1 % Monocytes (%) (Auto) 8.0 % Eosinophils (%) (Auto) 2.3 % Basophils (%) (Auto) 0.5 % Neutrophils # (Auto) 4.13 K/uL Lymphocytes # (Auto) 2.69 K/uL Monocytes # (Auto) 0.61 K/uL Eosinophils # (Auto) 0.18 K/uL Basophils # (Auto) 0.04 K/uL RDW Standard Deviation 48.7 fL RDW Coefficient of Variation 13.7 % Immature Granulocyte % (Auto) 0.1 % Immature Granulocyte # (Auto) 0.01 K/uL Prothrombin Time 10.3 SECONDS Prothromb Time International Ratio 1.0 Troponin I < 0.015 ng/ml Triglycerides Level 149 mg/dl Cholesterol Level 158 mg/dl HDL Cholesterol 52 mg/dl LDL Cholesterol, Calculated 76 mg/dl VLDL Cholesterol, Calculated 30 mg/dl Cholesterol/HDL Ratio 3.0 General Appearance: Alert and Oriented x3. NAD. Head: Normocephalic Atraumatic. Eyes: PERRLA, EOMI, conjunctiva and sclera clear Neck: Supple. No carotid bruits noted. No JVD. No HJD. Respiratory: Breath sounds clear to auscultation bilaterally. No w/r/r. Cardiovascular: Reg rate and rhythm. S1 and S2 noted. No murmurs, rubs, gallops. PMI non displace. Abdomen: Normal bowel sounds, soft nontender. no abdominal bruits. Extremities: No edema, no clubbing or cyanosis. distal pulses 2/4 bilaterally. Neuro: No focal deficits. Psychiatric: Normal affect. EKG reveals a sinus rhythm with a left bundle branch block Impression: 1. Atypical chest pain 2. Essential hypertension 3. History of GERD 4. Fibromyalgia and chronic fatigue Recommendations: The patient has had 3 negative cardiac enzymes. I believe that her pain is atypical and unlikely to be cardiac in origin however, she does have an old left bundle branch block on her EKG which makes further interpretation difficult. I would recommend that she have an outpatient Lexiscan Cardiolite study. I think she can be discharged home and have the study done as an outpatient and I will arrange for this through our office.
[2017-06-05] MEDS ORDERED: ASPEC81 PO (13:41)
--- NOTE | 2017-06-05 13:43 | Discharge Summary ---
Discharge Summary Date of Service Jun 05, 2017. Discharge Summary Admission Date: Jun 04, 2017 at 20:20 Discharge Date: Jun 05, 2017 Discharge Disposition: Home Principal Diagnosis: Atypical Chest Pain Procedures: CT dissection: 1. No thoracic aortic dissection. 2. No acute intrathoracic findings. 3. Mild to moderate cardiomegaly. 4. 5 mm right upper lobe nodule. This can be followed according to the attached recommendations. 5. Fatty liver. Gall Bladder USD: 1. No gallstones or biliary ductal dilatation. 2. Fatty infiltration of the liver. ECHO: * The study was technically limited. * The left ventricle is normal in size. * Left ventricular systolic function is mildly reduced. * Ejection Fraction = 45-50%. * Septal motion is consistent with conduction abnormality. * The right ventricular systolic function is normal. * The left atrial size is normal. * Right atrial size is normal. * No significant valvular pathology. Consultations: Cardiology Pending Studies/Follow-Up: Follow up with your Primary Care Physician on 06/12/17 at 11:04AM Follow up with your [employer] Crosscutter and get outpatient Lexiscan Cardiolite study as advised Seek immediate medical attention if your symptoms reoccur or worsen Medication Reconciliation New Medications: Aspirin (Aspirin EC Low Dose) 81 Mg Ectab 81 MG PO DAILY for 30 Days, #30 EA 2 Refills Continued Medications: Citalopram (Citalopram Hydrobromide) 40 Mg Tab 40 MG PO DAILY, TAB Clonazepam (Klonopin) 1 Mg Tab 1 MG PO HS, TAB Estrogens, Conjugated (Premarin) 14 Appln/30 Gm Cr 0.5 GM PV 2XWK ADMINISTER EVERY THURSDAY AND THURSDAY Fluticasone Propionate (Nasal) (Flonase Allergy Relief) 50 Mcg/Act Spr 2 SPRAYS MAGALY DAILY Gabapentin (Neurontin) 100 Mg Cap 100 MG PO HS, CAP Omeprazole (Prilosec) 20 Mg Capcr 20 MG PO BID, CAP TAKE THIS MEDICATION 30 MINUTES BEFORE BREAKFAST AND EVENING MEAL Oxycodone/Acetaminophen 5MG/325MG (Percocet 5MG/325MG) Tab 1 TABLET PO Q8 PRN for Severe Pain, TAB Solifenacin (Vesicare) 5 Mg Tab 5 MG PO DAILY, TAB Triamterene/Hctz (Dyazide 37.5MG/25MG) Cap 1 TAB PO DAILY, CAP Hospital Course Chest Pain: R/O ACS: Unlikely Cardiac Origin Last Stress ECHO was in 2001 Troponin:Negative EKG:LBBB CXR: Unremarkable CT dissection:No thoracic aortic dissection, Mild to moderate cardiomegaly. ECHO:pending fasting lipid panel:normal Appreciate Cardiology Input Planned for outpatient Lexiscan Cardiolite study as outpatient Hypertension: stable H/O Fibromyalgia H/O Mood disorder stable Continue home medications GERD: Continue PPI 5 mm R upper lobe nodule: No H/O smoking Follow up with PCP as outpatient given H/O being tired [employer] by occupation DVT Px; Lovenox SQ Code Status: Full code Disposition: Plan to discharge home today Follow up with your Primary Care Physician on 06/12/17 at 11:04AM Follow up with your Rolled Glass Crosscutter and get outpatient Lexiscan Cardiolite study as advised Seek immediate medical attention if your symptoms reoccur or worsen Total time spent on discharge = This includes examination of the patient, discharge planning, medication reconciliation, and communication with other providers. Discharge Instructions Discharge Instructions Date of Service Jun 05, 2017. Admission Reason for Admission: Chest Pain Discharge Discharge Diagnosis / Problem: Atypical Chest Pain Discharge Goals Goal(s): Decrease discomfort, Improve function Activity Recommendations Activity Limitations: resume your previous activity Exercise/Sports Limitations: as tolerated . Instructions / Follow-Up Instructions / Follow-Up Follow up with your Primary Care Physician on 06/12/17 at 11:04AM Follow up with your [employer]led Glass Crosscutter and get outpatient Lexiscan Cardiolite study as advised Seek immediate medical attention if your symptoms reoccur or worsen Current Hospital Diet Patient's current hospital diet: AHA Diet (Heart Healthy) Discharge Diet Recommended Diet: AHA Diet (Heart Healthy) Pending Studies Studies pending at discharge: yes List of pending studies: ECHO Laboratory Results Lipid Panel Test 06/05/17 03:51 Range/Units Triglycerides Level 149 0-150 mg/dl Cholesterol Level 158 0-200 mg/dl HDL Cholesterol 52 mg/dl Cholesterol/HDL Ratio 3.0 LDL Cholesterol, Calculated 76 mg/dl Medical Emergencies . Who to Call and When: Medical Emergencies: If at any time you feel your situation is an emergency, please call 911 immediately. . Non-Emergent Contact Non-Emergency issues call your: Primary Care Provider, [employer] Cross[employer]ter Call Non-Emergent contact if: you have a fever, your pain is not controlled, your pain is worsening, your pain is unusual for you, your pain is concerning you, you have any medication questions Seek immediate medical attention if your symptoms reoccur or worsen . . "Provider Documentation" section prepared by Bertrand Goodwin. . VTE Core Measure Inpt VTE Proph given/why not?: Enoxaparin (Lovenox)SQ
[2017-06-05 13:49] VITALS: BP 130/70; PULSE 81; TEMP 36.5; O2SAT 93
--- NOTE | 2017-06-05 15:15 | ECHOCARDIOGRAM REPORT ---
*NOTICE TO RECEIVING DEMOCRAT AGENCY This information is strictly Confidential and protected under [place] law. [place] law prohibits you from making any further disclosure of this information unless further disclosure is expressly permitted by the written consent of the person to whom it pertains or is authorized by law. A general authorization for the release of medical or other information is not sufficient for this purpose. Hospital accepts no responsibility if the information is made available to any other person, INCLUDING THE PATIENT. Interpretation Summary * Name: CASEY WHITTAKER Study Date: 06/05/2017 06:38 AM BP: 120/74 mmHg * Patient Location: [facility]\S\[id number] HR: 68 * : 1950 (M/d/yyyy) Gender: Female Height: 60 in * Age: 66 yrs Ethnicity: [place] Weight: 197 lb * Ordering Physician: Mason Yu * Referring Physician: Self, Referred * Performed By: Larissa Perkins RDCS * * Reason For Study: Chest Pain * BSA: 1.9 m2 * The study was technically limited. * -- Conclusions -- * The study was technically limited. * The left ventricle is normal in size. * Left ventricular systolic function is mildly reduced. * Ejection Fraction = 45-50%. * Septal motion is consistent with conduction abnormality. * The right ventricular systolic function is normal. * The left atrial size is normal. * Right atrial size is normal. * No significant valvular pathology. Procedure Details * A complete two-dimensional transthoracic echocardiogram was performed (2D, M-mode, Doppler and color flow Doppler). Left Ventricle * The left ventricle is normal in size. * There is normal left ventricular wall thickness. * Ejection Fraction = 45-50%. * Left ventricular systolic function is mildly reduced. * Septal motion is consistent with conduction abnormality. Right Ventricle * The right ventricle is normal size. * The right ventricular systolic function is normal. Atria * The left atrial size is normal. * Right atrial size is normal. * The interatrial septum is intact with no evidence for an atrial septal defect. Mitral Valve * The mitral valve is grossly normal. * There is trace mitral regurgitation. Tricuspid Valve * The tricuspid valve is not well visualized. * Significant tricuspid regurgitation is absent. Aortic Valve * The aortic valve is normal in structure and function. Pulmonic Valve * The pulmonic valve is not well seen, but is grossly normal. * There is no significant pulmonary regurgitation. Pericardium/Pleural * There is no pericardial effusion. MMode 2D Measurements and Calculations IVSd 0.78 cm IVSs 1.0 cm LVIDd 5.2 cm LVIDs 3.9 cm LVPWd 0.86 cm LVPWs 1.5 cm IVS/LVPW 0.90 FS 25.0 % EDV(Teich) 129.8 ml ESV(Teich) 66.1 ml EF(Teich) 49.1 % EDV(cubed) 141.1 ml ESV(cubed) 59.5 ml EF(cubed) 57.8 % % IVS thick 30.3 % % LVPW thick 75.0 % LV mass(C)d 150.4 grams LV mass(C)dI 81.1 grams/m\S\2 LV mass(C)s 172.3 grams LV mass(C)sI 92.9 grams/m\S\2 SV(Teich) 63.7 ml SI(Teich) 34.4 ml/m\S\2 SV(cubed) 81.5 ml SI(cubed) 44.0 ml/m\S\2 EPSS 2.1 cm Ao root diam 2.1 cm Ao root area 3.5 cm\S\2 ACS 1.7 cm LA dimension 2.6 cm LA/Ao 1.2 LVAd ap4 31.2 cm\S\2 LVLd ap4 8.3 cm EDV(MOD-sp4) 103.7 ml EDV(sp4-el) 99.6 ml LVAs ap4 20.7 cm\S\2 LVLs ap4 7.5 cm ESV(MOD-sp4) 52.1 ml ESV(sp4-el) 48.2 ml EF(MOD-sp4) 49.8 % EF(sp4-el) 51.6 % LVAd ap2 26.3 cm\S\2 LVLd ap2 7.2 cm EDV(MOD-sp2) 80.9 ml EDV(sp2-el) 81.3 ml LVAs ap2 18.7 cm\S\2 LVLs ap2 6.2 cm ESV(MOD-sp2) 47.3 ml ESV(sp2-el) 48.1 ml EF(MOD-sp2) 41.5 % EF(sp2-el) 40.8 % LVLd %diff -14.43 % EDV(MOD-bp) 97.3 ml LVLs %diff -22.16 % ESV(MOD-bp) 54.2 ml EF(MOD-bp) 44.3 % SV(MOD-sp4) 51.6 ml SI(MOD-sp4) 27.8 ml/m\S\2 SV(MOD-sp2) 33.6 ml SI(MOD-sp2) 18.1 ml/m\S\2 SV(MOD-bp) 43.1 ml SI(MOD-bp) 23.2 ml/m\S\2 SV(sp4-el) 51.4 ml SI(sp4-el) 27.7 ml/m\S\2 SV(sp2-el) 33.2 ml SI(sp2-el) 17.9 ml/m\S\2 Doppler Measurements and Calculations MV E max tonya 95.1 cm/sec MV A max tonya 85.9 cm/sec MV E/A 1.1 MV dec time 0.24 sec Ao V2 max 175.1 cm/sec Ao max PG 12.3 mmHg Ao max PG (full) 8.0 mmHg LV V1 max PG 4.3 mmHg LV V1 max 103.3 cm/sec PA V2 max 140.0 cm/sec PA max PG 7.8 mmHg
[2017-06-05] MEDS ORDERED: GABAPENTIN 100 MG CAP PO SCH (21:00)
[2017-06-05] MEDS ORDERED: CLONAZEPAM 1 MG TAB PO SCH (21:00)
== END 2017-06-05 14:21 | disposition home or self-care (01) ==
LOC: EDBD 17:43 → C.EDB 17:44 → C.MED 20:20 → ENRESERV 20:48
PROVIDERS: ADMIT Internal Medicine; ATTEND Internal Medicine
DX: R07.89 Other chest pain (principal); I10 Essential (primary) hypertension; M79.7 Fibromyalgia; F39 Unspecified mood [affective] disorder; K21.9 Gastro-esophageal reflux disease without esophagitis; R91.1 Solitary pulmonary nodule; R53.82 Chronic fatigue, unspecified; I44.7 Left bundle-branch block, unspecified; E11.9 Type 2 diabetes mellitus without complications; Z79.82 Long term (current) use of aspirin; Z82.49 Family history of ischemic heart disease and other diseases of the circulatory system; Z80.8 Family history of malignant neoplasm of other organs or systems